=== PATIENT | female | born 1940 | race Caucasian/White ===

== ENCOUNTER 2020-12-30 14:16 | Inpatient (IN) ==
[2020-12-30] MEDS ORDERED: ONDANSETRON 4 MG/2 ML VIAL IV PRN (16:04)
[2020-12-30] MEDS ORDERED: SENNOSIDES 1 TABLET PO PRN (16:07)
[2020-12-30] MEDS ORDERED: CALCIUM CARBONATE 500 MG TAB.CHEW CHEWED PRN (16:07)
[2020-12-30] MEDS ORDERED: ONDANSETRON 4 MG ODT TABLET SL PRN (16:07)
[2020-12-30] MEDS ORDERED: ACETAMINOPHEN 325 MG TABLET PO PRN (16:07)
[2020-12-30] MEDS ORDERED: POTASSIUM CHLORIDE 20 MEQ in DEXTROSE 5% IN WATER 250 ML IV ONE (16:11)
[2020-12-30] MEDS ORDERED: POTASSIUM CHLORIDE 20 MEQ TABLET PO ONE (16:12)
--- NOTE | 2020-12-30 16:14 | Internal Med History&Physical ---
HPI History of Present Illness Patient information: Note initiated : 12/30/20 at 4:12 pm Service Date, if different from initiated Date: [] Patient: Blossom Amaral 80 y/o F admitted on 12/30/20 for UTI; Hypokalemia. Chief Complaint: Lumbar vertebral fracture due to frequent falls, UTI History of present illness: Ms. Amaral is a 80 year old female who transferred from [facility] emergency room. Patient was presented to the ED with frequent falls for 1-2 weeks according to the family. She has generalized weakness and failure to thrive. Patient walks with a walker and her last fall was 3 days ago where she landed on her back. She complains of low and middle back pain. CT scan of lumbar spine revealed subacute VS acute compression fracture L4, chronic compression deformities T11, L1 with diffuse osteopenia. She had urinary incontinence and she was found to have evidence of urinary tract infection and was given IV fluid and 1 g of Rocephin. Urine culture is pending. Her serum potassium was 2.8 with normal BUN/creatinine. Currently she is feeling better after receiving IV fluid. She complains of low and mid back pain. No nausea vomiting chest pain shortness of breath. Review of Systems All systems: reviewed and no additional remarkable complaints except as stated Review of systems: Except as documented all systems reviewed and negative MEDS/ALLERGIES Home Medications and Allergies Home Medications Medication Instructions Recorded Confirmed Type No Known Home Meds 12/30/20 12/30/20 History Allergies Allergy/AdvReac Type Severity Reaction Status Date / Time No Known Drug Allergies Allergy Unverified 12/30/20 15:59 EXAM Constitutional Vitals: Temp Pulse Resp BP Pulse Ox 98.9 F 81 20 162/85 91 12/30/20 15:56 12/30/20 15:56 12/30/20 15:56 12/30/20 15:56 12/30/20 15:56 General appearance: average body habitus (Pleasant elderly female in no distress), cooperative and no acute distress Head Head exam: Present atraumatic, normal inspection and normocephalic Eye Eye exam: Present EOMI, normal appearance and PERRL Neck Neck exam: Present full ROM and normal inspection Respiratory Respiratory exam: Present normal respiratory exam and CTAB Cardiovascular Cardiovascular exam: Present normal rate and rhythm, +S1 and +S2; Absent diastolic murmur and systolic murmur GI/Abdominal GI/Abdominal exam: Present normal bowel sounds, soft and distended (Moderate to severe distention, tympanic, positive bowel sounds. Nontender. No hepatosplenomegaly. No hernia. No mass); Absent hernia, mass, rebound and tenderness Extremities Exam Extremities exam: Present full ROM, normal capillary refill and normal inspection; Absent calf tenderness and joint swelling Back Exam Back exam: Present tenderness (Decreased range of motion due to pain.) Neurological Exam Neurological exam: Present alert, CN II-XII intact, oriented X3 and reflexes normal Psychiatric Psychiatric exam: Present normal affect and normal mood Skin Skin exam: Present dry, normal color and warm DATA Data Completed and Pending Procedures and tests throughout hospitalization: All the studies including chest x-ray, CT scan of thoracic and lumbar spine, CBC, BMP and vital signs from [place] emergency room has been reviewed by myself Impressions Impressions: CT scan of thoracic and lumbar spine from [facility]: Subacute versus acute compression fracture L4, chronic compression fraction/deformity T11 L1, diffuse osteopenia, probable mucous plugging descending bronchus to the left lower lobe. A/P Narrative A/P Narrative: 80 years old pleasant female admitted from [place] emergency room with following problem list: # Fall with L4 Fx. - CT scan of thoracic and lumbar spine from [facility]: Subacute vs acute compression fracture L4, chronic compression fraction/deformity T11 L1, diffuse osteopenia, - Pain control, PT/OT. Consider TLSO brace. Will d/w PT # UTI Abnormal UA at [facility] ER. Pending Ux - UA 27 WBC, +nevin Bacteria, LE - Incontinence of urine. - Cont Rocephin 1g daily and follow Ux from [facility]. # Dehydration. - Gentle IVF and follow BMP. # Mod Abdominal distention. - Pt has no N/V. She had small BM earlier. On Exam Abd non tender - Check KUB. # Probable mucous plugging descending bronchus to the left lower lobe by CT scan - No symptoms. Monitor #Profound hypokalemia serum potassium 2.8. Likely due to poor p.o. intake -Replace and follow BMP #Frequent falls/generalized weakness/failure to thrive -Supportive care, PT/OT. Patient likely needs intermediate home DVT PPX: Lovenox 40mg daily Code Status : Full code Disposition: Observation Plan of care discussed with patient and RN Time Spent With Patient Time: Total time spent is greater than 50% in coordination of care (as documented) at patient's floor/unit and/or counseling patient:
[2020-12-30] MEDS ORDERED: IBUPROFEN 200 MG TABLET PO PRN (16:48)
[2020-12-30] MEDS: 0.9 % SODIUM CHLORIDE 1,000 ML IV SCH (17:17)
[2020-12-30] MEDS: ENOXAPARIN 40 MG/0.4 ML SYRINGE SQ SCH (18:17)
[2020-12-30] MEDS: cefTRIAXone 1 GM VIAL IV SCH (18:18)
[2020-12-30] MEDS ORDERED: hydrALAZINE 20 MG/ML VIAL IV PRN (18:43)
[2020-12-30] MEDS ORDERED: POTASSIUM CHLORIDE 20 MEQ/10 ML VIAL IV ONE (18:43)
[2020-12-30] MEDS: amLODIPine 5 MG TABLET PO SCH (18:52)
[2020-12-30] MEDS: MAGNESIUM HYDROXIDE 30 ML ORAL.SUSP PO PRN (20:13)
[2020-12-30] MEDS: 0.9 % SODIUM CHLORIDE 10 ML SYRINGE IV SCH (20:17)
--- NOTE | 2020-12-30 20:42 | XRay Report ---
CLINICAL INFORMATION: Abdominal distention COMPARISON: None. FINDINGS: Marked dilatation of the colon to the distal descending segment appreciated. The sigmoid: and rectum are gasless. This suggests distal colonic obstruction. There is no free air or soft tissue mass.. Severe degeneration both hips noted. IMPRESSION: High-grade distal colonic obstruction at the descending colon/ sigmoid junction. Suggest abdomen and pelvic CT to confirm. Severe hip degeneration Interpreted and Authenticated by: Chris Bernal 12/30/20
[2020-12-31] MEDS: 0.9 % SODIUM CHLORIDE 1,000 ML IV SCH (02:57)
[2020-12-31] MEDS: 0.9 % SODIUM CHLORIDE 10 ML SYRINGE IV SCH ×3 (05:46→21:42)
[2020-12-31 06:28] LABS: Basophils # (Auto) 0.04 K/mcL (0.00-0.20); Basophils % (Auto) 0.4 % (0.0-2.0); Eosinophils # (Auto) 0.49 K/mcL (0.00-0.70); Eosinophils % (Auto) 5.4 % (0.0-7.0); Hematocrit 46.6 % (36.0-48.0); Lymphocytes # (Auto) 2.45 K/mcL (1.50-4.80); Lymphocytes % (Auto) 26.8 % (15.0-49.0); Mean Cell Volume 94.3 fL (80.0-100.0); Mean Corpuscular HGB Conc 34.3 g/dL (31.0-36.0); Mean Platelet Volume 10.1 fL (7.4-10.4); Monocytes # (Auto) 0.49 K/mcL (0.10-0.90); Monocytes % (Auto) 5.4 % (1.0-12.0); Platelet Count 331 K/mcL (140-440); RBC 4.94 M/mcL (4.00-5.20); Red Cell Distribution Width 13.1 % (11.5-14.5); WBC 9.1 K/mcL (4.5-11.0)
[2020-12-31 07:04] LABS: Blood Urea Nitrogen 6 mg/dL (8-23); Calcium 8.4 mg/dL (8.6-10.4); Carbon Dioxide 23 mmol/L (22-30); Chloride 102 mmol/L (96-108); Glomerular Filtration Rate 90; Glucose 108 mg/dL (70-105)
[2020-12-31] MEDS: amLODIPine 5 MG TABLET PO SCH (08:36)
[2020-12-31] MEDS: ACETAMINOPHEN W/CODEINE #3 1 TABLET PO PRN ×3 (08:36→22:09)
[2020-12-31] MEDS: cefTRIAXone 1 GM VIAL IV SCH (08:40)
[2020-12-31] MEDS ORDERED: cefTRIAXone 1 GM in DEXTROSE 5% IN WATER 50 ML IV SCH (09:00)
[2020-12-31] MEDS: ENOXAPARIN 40 MG/0.4 ML SYRINGE SQ SCH (09:25)
--- NOTE | 2020-12-31 10:11 | Internal Med Progress Note ---
SUBJECTIVE Subjective Patient information: Note initiated : 12/31/20 at 10:07 am Service Date, if different from initiated Date: Patient: Blossom Amaral 80 y/o F admitted on 12/30/20 for UTI; Hypokalemia. Chief Complaint: Fall and L4 Fracture Principal diagnosis: Fall with L4 fracture Interval history: Patient is feeling much better today. He still has low back pain. No nausea vomiting chest pain shortness of breath. Constitutional Vitals: Vital Signs Temp Pulse Resp BP Pulse Ox 98.3 F 71 18 147/79 93 12/31/20 08:00 12/31/20 08:00 12/31/20 08:00 12/31/20 08:00 12/31/20 08:00 Period Temp Pulse Resp BP Sys/Antunez Pulse Ox Last 24 Hr 97.5 F-98.9 F 61-84 16-20 136-162/72-85 91-94 Intake and Output 12/30/20 12/31/20 12/31/20 21:59 05:59 13:59 Intake Total 260 1567 Output Total 900 Balance 260 667 Weight 67.642 kg Intake & Output: Intake & Output 12/30/20 12/31/20 12/31/20 21:59 05:59 13:59 Intake Total 260 1567 Output Total 900 Balance 260 667 Weight 67.642 kg Intake: IV 260 967 Sodium Chloride 0.9% 1,000 ml @ 967 100 mls/hr IV .Q10H [facility] Rx#: [id number] Potassium Chloride 20 Meq In 260 Dextrose 5% in Water 250 ml @ 130 mls/hr IV ONCE ONE Rx#: [id number] Oral 0 600 Output: Urine Catheter Amount 250 Stool 650 Other: Meal Breakfast Percent of Meal Consumed 75% Stool Color Brown Stool Consistency Liquid Additional findings Additional findings: General: Awake alert oriented x3. No apparent distress HEENT: PERRLA, moist mucous membrane. Anicteric sclera Lungs: Clear to auscultation bilaterally. No crackles rhonchi or rales. Cardiovascular: Regular rate and rhythm. S1 + S2, 2/6 diastolic murmur. No gallop rub. No peripheral edema. No JVD GI: Abdomen distended, tympanic, soft, nontender, positive bowel sounds. No hepatosplenomegaly. No rebound tenderness. No CVA tenderness [employer]: Awake alert oriented x3. Cranial nerves II through XII 12 grossly intact. Psychiatric: Normal mood and affect OBJ DATA Labs CBC & Chem 7: 12/31/20 05:30 12/31/20 05:30 Labs: Abnormal Lab Results 12/31/20 12/31/20 05:30 05:30 Hgb 16.0 H BUN 6 L Creatinine 0.5 L Glucose 108 H Calcium 8.4 L Meds: Medications Acetaminophen (Acetaminophen 325 Mg Tablet) 650 mg PO Q6HP PRN; Protocol PRN Reason: Per Pain Protocol/Fever > 101 Acetaminophen/Codeine Phosphate (Acetaminophen W/Codeine #3 1 Tablet) 1 tab PO Q4HP PRN; Protocol PRN Reason: Per Pain Protocol Last Admin: 12/31/20 08:36 Dose: 1 tab Documented by: Amlodipine Besylate (Amlodipine 5 Mg Tablet) 5 mg PO DAILY [facility] Last Admin: 12/31/20 08:36 Dose: 5 mg Documented by: Calcium Carbonate/Glycine (Calcium Carbonate 500 Mg Tab.Chew) 1,000 mg CHEWED Q4HP PRN PRN Reason: Dyspepsia Ceftriaxone Sodium (Ceftriaxone 1 Gm Vial) 1 gm IV DAILY [facility] Last Admin: 12/31/20 08:40 Dose: 1 gm Documented by: Enoxaparin Sodium (Enoxaparin 40 Mg/0.4 Ml Syringe) 40 mg SQ DAILY [facility] Last Admin: 12/31/20 09:25 Dose: 40 mg Documented by: Hydralazine HCl (Hydralazine 20 Mg/Ml Vial) 10 mg IV Q4-6HP PRN PRN Reason: Hypertension Ibuprofen (Ibuprofen 200 Mg Tablet) 400 mg PO QIDP PRN; Protocol PRN Reason: Per Pain Protocol/Fever > 101 Last Admin: 12/30/20 20:13 Dose: 400 mg Documented by: Magnesium Hydroxide (Magnesium Hydroxide 30 Ml Oral.Susp) 30 ml PO DAILYP PRN PRN Reason: Constipation Last Admin: 12/30/20 20:13 Dose: 30 ml Documented by: Ondansetron HCl (Ondansetron 4 Mg Odt Tablet) 4 mg SL Q6HP PRN PRN Reason: Nausea And Vomiting Ondansetron HCl (Ondansetron 4 Mg/2 Ml Vial) 4 mg IV Q6HP PRN PRN Reason: Nausea And Vomiting Senna (Sennosides 1 Tablet) 2 tab PO HS PRN PRN Reason: Constipation Sodium Chloride (0.9 % Sodium Chloride 10 Ml Syringe) 10 ml IV Q8 [facility] Last Admin: 12/31/20 05:46 Dose: Not Given Documented by: A/P Narrative A/P Narrative: 80 years old pleasant female admitted from [facility] emergency room with following problem list: # Fall with L4 Fx. - CT scan of thoracic and lumbar spine from [facility]: Subacute vs acute compression fracture L4, chronic compression fraction/deformity T11 L1, diffuse osteopenia, - Pain control, PT/OT. Consider TLSO brace. Will d/w PT # UTI Abnormal UA at [facility] ER. Pending Ux - UA 27 WBC, +nevin Bacteria, LE - Incontinence of urine. - Cont Rocephin 1g daily and follow Ux from [facility]. # Mod Abdominal distention. - Pt had Large BM last night. No N/V, Pain. No clinical S&S of Obstruction. - KUB High-grade distal colonic obstruction at the descending colon/ sigmoid junction. Suggest abdomen and pelvic CT to confirm. - Check CT A/P with Oral IV/Contrast # Dehydration. - Gentle IVF and follow BMP. # Probable mucous plugging descending bronchus to the left lower lobe by CT scan - No symptoms. Monitor #Profound hypokalemia serum potassium 2.8. Likely due to poor p.o. intake -Replace and follow BMP #Frequent falls/generalized weakness/failure to thrive -Supportive care, PT/OT. Patient likely needs snf home DVT PPX: Lovenox 40mg daily Code Status : Full code Disposition: Inpatient Plan of care discussed with patient and RN Time Spent With Patient Time: Total time spent is greater than 50% in coordination of care (as docume nted) at patient's floor/unit and/or counseling patient:
[2020-12-31] MEDS ORDERED: POTASSIUM CHLORIDE 20 MEQ TABLET PO ONE (10:18)
--- NOTE | 2020-12-31 13:06 | Internal Med Progress Note ---
SUBJECTIVE Subjective Patient information: Note initiated : 12/31/20 at 1:00 pm Service Date, if different from initiated Date: [] Patient: Blossom Amaral 80 y/o F admitted on 12/30/20 for UTI; Hypokalemia. Chief Complaint: [] Principal diagnosis: Fall with L4 fracture Interval history: History of present illness: Ms. Amaral is a 80 year old female who transferred from [facility] emergency room. Patient was presented to the ED with frequent falls for 1-2 weeks according to the family. She has generalized weakness and failure to thrive. Patient walks with a walker and her last fall was 3 days ago where she landed on her back. She complains of low and middle back pain. CT scan of lumbar spine revealed subacute VS acute compression fracture L4, chronic compression deformities T11, L1 with diffuse osteopenia. She had urinary incontinence and she was found to have evidence of urinary tract infection and was given IV fluid and 1 g of Rocephin. Urine culture is pending. Her serum potassium was 2.8 with normal BUN/creatinine. Currently she is feeling better after receiving IV fluid. She complains of low and mid back pain. No nausea vomiting chest pain shortness of breath. 7/5 Patient is feeling much better today. He still has low back pain. No nausea vomiting chest pain shortness of breath. 7/6 Constitutional Vitals: Vital Signs Temp Pulse Resp BP Pulse Ox 98.3 F 71 18 147/79 93 12/31/20 08:00 12/31/20 08:00 12/31/20 08:00 12/31/20 08:00 12/31/20 08:00 Period Temp Pulse Resp BP Sys/Antunez Pulse Ox Last 24 Hr 97.5 F-98.9 F 61-84 16-20 136-162/72-85 91-94 Intake and Output 12/30/20 12/31/20 12/31/20 21:59 05:59 13:59 Intake Total 260 1567 1000 Output Total 900 Balance 547 416 2061 Weight 67.642 kg 67.642 kg Patient Weight 01/01/21 05:59 Weight 67.642 kg Intake & Output: Intake & Output 12/30/20 12/31/20 12/31/20 21:59 05:59 13:59 Intake Total 260 1567 1000 Output Total 900 Balance 090 311 3293 Weight 67.642 kg 67.642 kg Intake: IV 350 291 1301 Sodium Chloride 0.9% 1,000 ml @ 967 1000 100 mls/hr IV .Q10H [facility] Rx#: [id number] Potassium Chloride 20 Meq In 260 Dextrose 5% in Water 250 ml @ 130 mls/hr IV ONCE ONE Rx#: [id number] Oral 0 600 Output: Urine Catheter Amount 250 Stool 650 Other: Meal Breakfast Percent of Meal Consumed 75% Stool Color Brown Stool Consistency Liquid Exam: General: Alert, Awake, No acute Distress Eyes/N/T: EOMI, Head/Neck: neck supple, CV: RRR, No murmurs, Pulm: Clear b/l, no wheezing/rhonchi/rales Abd: soft, nontender, +BS x4 Ext: no clubbing/cyanosis/edema Neuro: Alert, no focal deficits, moves all extremities, Skin: warm/dry OBJ DATA Labs CBC & Chem 7: 12/31/20 05:30 12/31/20 05:30 Labs: Abnormal Lab Results 12/31/20 12/31/20 05:30 05:30 Hgb 16.0 H BUN 6 L Creatinine 0.5 L Glucose 108 H Calcium 8.4 L Meds: Medications Acetaminophen (Acetaminophen 325 Mg Tablet) 650 mg PO Q6HP PRN; Protocol PRN Reason: Per Pain Protocol/Fever > 101 Acetaminophen/Codeine Phosphate (Acetaminophen W/Codeine #3 1 Tablet) 1 tab PO Q4HP PRN; Protocol PRN Reason: Per Pain Protocol Last Admin: 12/31/20 08:36 Dose: 1 tab Documented by: Amlodipine Besylate (Amlodipine 5 Mg Tablet) 5 mg PO DAILY [facility] Last Admin: 12/31/20 08:36 Dose: 5 mg Documented by: Calcium Carbonate/Glycine (Calcium Carbonate 500 Mg Tab.Chew) 1,000 mg CHEWED Q4HP PRN PRN Reason: Dyspepsia Ceftriaxone Sodium (Ceftriaxone 1 Gm Vial) 1 gm IV DAILY [facility] Last Admin: 12/31/20 08:40 Dose: 1 gm Documented by: Enoxaparin Sodium (Enoxaparin 40 Mg/0.4 Ml Syringe) 40 mg SQ DAILY [facility] Last Admin: 12/31/20 09:25 Dose: 40 mg Documented by: Hydralazine HCl (Hydralazine 20 Mg/Ml Vial) 10 mg IV Q4-6HP PRN PRN Reason: Hypertension Ibuprofen (Ibuprofen 200 Mg Tablet) 400 mg PO QIDP PRN; Protocol PRN Reason: Per Pain Protocol/Fever > 101 Last Admin: 12/30/20 20:13 Dose: 400 mg Documented by: Magnesium Hydroxide (Magnesium Hydroxide 30 Ml Oral.Susp) 30 ml PO DAILYP PRN PRN Reason: Constipation Last Admin: 12/30/20 20:13 Dose: 30 ml Documented by: Ondansetron HCl (Ondansetron 4 Mg Odt Tablet) 4 mg SL Q6HP PRN PRN Reason: Nausea And Vomiting Ondansetron HCl (Ondansetron 4 Mg/2 Ml Vial) 4 mg IV Q6HP PRN PRN Reason: Nausea And Vomiting Potassium Chloride (Potassium Chloride 20 Meq Tablet) 40 meq PO ONCE ONE Stop: 01/01/21 08:01 Senna (Sennosides 1 Tablet) 2 tab PO HS PRN PRN Reason: Constipation Sodium Chloride (0.9 % Sodium Chloride 10 Ml Syringe) 10 ml IV Q8 [facility] Last Admin: 12/31/20 05:46 Dose: Not Given Documented by: A/P Narrative A/P Narrative: A: #Fall with L4 Fx: - Pain control, PT/OT. Consider TLSO brace. Will d/w PT # UTI: - Cont Rocephin 1g daily and follow Ux from [facility] #pSOB vs Ileus - Check CT A/P with Oral IV/Contrast #Dehydration: improved # Probable mucous plugging descending bronchus to the left lower lobe by CT scan -IS/Acapella #Profound hypokalemia serum potassium 2.8: Likely due to poor p.o. intake -Replace and follow BMP #Frequent falls/generalized weakness/failure to thrive: -Supportive care, PT/OT. Patient likely needs long term home DVT PPX: Lovenox 40mg daily Code Status : Full code Time Spent With Patient Time: Total time spent is greater than 50% in coordination of care (as documented) at patient's floor/unit and/or counseling patient:
[2020-12-31] MEDS ORDERED: IOPAMIDOL 100 ML BOTTLE IV ONE (15:04)
--- NOTE | 2020-12-31 15:18 | Cat Scan Report ---
History: Abdominal distention and possible distal large bowel obstruction seen on plain x-ray performed on 12/30/20 TECHNIQUE: The patient was imaged following oral and intravenous contrast scanning from the diaphragm to the symphysis pubis. Sagittal and coronal reformats were created. Additional five minute delayed images of the upper abdomen were acquired. The radiation exposure was limited using dose reduction technology. FINDINGS: There are several bands of consolidated lung tissue contiguous with the pleura in both lung bases. This could be scar or atelectasis. The heart is mildly enlarged. No pleural effusion is present. The liver and spleen are normal in size and homogeneous. Layering posteriorly within the fundus of gallbladder there is a cluster of small faintly calcified stones which range from 2 to 3 mm in size. There is no evidence of acute cholecystitis. The intra and extrahepatic bile ducts are normal in caliber. Pancreas is normal in size and homogeneous. The adrenals are normal and symmetric. A 2.5 cm simple cyst is present anteriorly and laterally in the upper half of left kidney. A 1.4 cm cyst is present in the middle third of the right kidney. Large extrarenal pelvis are present bilaterally but there is no caliectasis. The ureters are decompressed. There is no kidney stone or evidence of solid renal mass. The aorta is normal in caliber. There are scattered plaques along the zapien of the aorta celiac, superior mesenteric renal and iliac arteries. There is no evidence of vascular occlusion within the abdomen or pelvis. Inferior vena cava is normal. Normal contrast is passed through normal stomach and small intestine to the distal ileum. Contrast has not yet entered the large intestine. There is no evidence of appendicitis. Moderate amount of gas and normal amount stool are present in the ascending transverse and proximal descending colon. There are multiple noninflamed diverticula in the distal descending and proximal sigmoid colon. There is circumferential thickening of the wall of the distal sigmoid colon and rectum with collapse of the lumen. The wall measures up to 1 cm. There is no inflammation of the adjacent pericolonic fat. Trace amount of ascites is present anterior to the sacrum. There is no evidence of an abscess or free intraperitoneal air. Urinary bladder appears normal. Uterus is retroverted. There is atrophy of the uterus and ovaries. Bone windows reveal moderately severe biconcave wedge compression fractures at T11, L1 and L4. There is sclerosis in the body of L4. The pedicles and posterior elements appear normal. 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 IMPRESSION: Colitis involving the distal sigmoid and rectum causing low-grade large bowel obstruction Cholelithiasis Diverticulosis but without diverticulitis Multiple compression fractures in the lower thoracic and lumbar spine. This may be related to the underlying osteoporosis Interpreted and Authenticated by: Golden Cartwright 12/31/20
[2021-01-01] MEDS: 0.9 % SODIUM CHLORIDE 10 ML SYRINGE IV SCH ×3 (04:36→22:30)
[2021-01-01] MEDS: MAGNESIUM HYDROXIDE 30 ML ORAL.SUSP PO PRN (05:16)
[2021-01-01 06:25] LABS: Basophils # (Auto) 0.03 K/mcL (0.00-0.20); Basophils % (Auto) 0.4 % (0.0-2.0); Eosinophils # (Auto) 0.27 K/mcL (0.00-0.70); Hematocrit 43.4 % (36.0-48.0); Hemoglobin 14.6 g/dL (12.0-15.0); Lymphocytes % (Auto) 17.9 % (15.0-49.0); Mean Cell Volume 95.2 fL (80.0-100.0); Mean Corpuscular HGB Conc 33.6 g/dL (31.0-36.0); Mean Platelet Volume 9.9 fL (7.4-10.4); Monocytes # (Auto) 0.43 K/mcL (0.10-0.90); Monocytes % (Auto) 6.4 % (1.0-12.0); Neutrophils % (Auto) 71.3 % (38.0-78.0); Platelet Count 300 K/mcL (140-440); RBC 4.56 M/mcL (4.00-5.20); WBC 6.7 K/mcL (4.5-11.0)
[2021-01-01 06:57] LABS: ALT/SGPT 10 U/L (<40); AST/SGOT 14 U/L (<32); Albumin 3.1 gm/dL (3.2-5.2); Alkaline Phosphatase 151 U/L (39-117); Bilirubin,Direct 0.3 mg/dL (<0.3); Bilirubin,Total 1.1 mg/dL (0.1-1.0); Blood Urea Nitrogen 5 mg/dL (8-23); Calcium 8.5 mg/dL (8.6-10.4); Carbon Dioxide 24 mmol/L (22-30); Chloride 103 mmol/L (96-108); Globulin 3.1 gm/dL (2.2-3.7); Glomerular Filtration Rate 97; Glucose 87 mg/dL (70-105); Lactate Dehydrogenase 216 U/L (135-225); Phosphorous 2.3 mg/dL (2.5-4.5); Triglycerides 84 mg/dL (<150); Uric Acid 2.8 mg/dL (2.5-8.0)
--- NOTE | 2021-01-01 07:07 | Internal Med Progress Note ---
SUBJECTIVE Subjective Patient information: Note initiated : 01/01/21 at 7:03 am Service Date, if different from initiated Date: [] Patient: Blossom Amaral 80 y/o F admitted on 12/30/20 for UTI; Hypokalemia. Chief Complaint: [] Principal diagnosis: Fall with L4 fracture Interval history: History of present illness: Ms. Amaral is a 80 year old female who transferred from [facility] emergency room. Patient was presented to the ED with frequent falls for 1-2 weeks according to the family. She has generalized weakness and failure to thrive. Patient walks with a walker and her last fall was 3 days ago where she landed on her back. She complains of low and middle back pain. CT scan of lumbar spine revealed subacute VS acute compression fracture L4, chronic compression deformities T11, L1 with diffuse osteopenia. She had urinary incontinence and she was found to have evidence of urinary tract infection and was given IV fluid and 1 g of Rocephin. Urine culture is pending. Her serum potassium was 2.8 with normal BUN/creatinine. Currently she is feeling better after receiving IV fluid. She complains of low and mid back pain. No nausea vomiting chest pain shortness of breath. 7/5 Patient is feeling much better today. He still has low back pain. No nausea vomiting chest pain shortness of breath. 7/6 Patient states poor sleep because of interruptions, otherwise no new complaints. Last recorded bowel movement was historical guide on the fifth. Patient states she just had a small one this morning we will need to clarify with nursing. LSO brace for back Review of Systems: denies headache/fever/chills/nausea/vomiting/chest or abdominal pain/cough/dyspnea/diarrhea. Otherwise see above. Constitutional Vitals: Vital Signs Temp Pulse Resp BP Pulse Ox 98.3 F 70 18 152/81 92 01/01/21 03:43 01/01/21 03:43 01/01/21 03:43 01/01/21 03:43 01/01/21 03:43 Period Temp Pulse Resp BP Sys/Antunez Pulse Ox Last 24 Hr 98.1 F-98.7 F 65-72 18-20 128-152/72-81 91-95 Intake and Output 12/31/20 01/01/21 01/01/21 21:59 05:59 13:59 Intake Total 600 600 Output Total 1141 301 Balance -541 299 Weight 68.538 kg Intake & Output: Intake & Output 12/31/20 01/01/21 01/01/21 21:59 05:59 13:59 Intake Total 600 600 Output Total 1141 301 Balance -541 299 Weight 68.538 kg Intake: Oral 600 600 Output: Void Amount 1140 300 # of times incontinent of urine 1 1 Other: Meal ice cream Urine Appearance Clear Clear Urine Color Bright Yellow Bright Yellow Urine Odor Normal # Voids 1 Exam: General: Alert, Awake, No acute Distress Eyes/N/T: EOMI, Head/Neck: neck supple, CV: RRR, No murmurs, Pulm: Clear b/l, no wheezing/rhonchi/rales Abd: soft, nontender, +BS x4 Ext: no clubbing/cyanosis/edema Neuro: Alert, no focal deficits, moves all extremities, Skin: warm/dry OBJ DATA Labs CBC & Chem 7: 01/01/21 05:32 01/01/21 05:32 Labs: Abnormal Lab Results 01/01/21 01/01/21 12/31/20 05:32 05:32 05:30 Hgb Lymph # (Auto) 1.20 L BUN 5 L 6 L Creatinine 0.4 L 0.5 L Glucose 108 H Calcium 8.5 L 8.4 L Phosphorus 2.3 L Total Bilirubin 1.1 H Direct Bilirubin 0.3 H Alkaline Phosphatase 151 H Albumin 3.1 L 12/31/20 05:30 Hgb 16.0 H Lymph # (Auto) BUN Creatinine Glucose Calcium Phosphorus Total Bilirubin Direct Bilirubin Alkaline Phosphatase Albumin Meds: Medications Acetaminophen (Acetaminophen 325 Mg Tablet) 650 mg PO Q6HP PRN; Protocol PRN Reason: Per Pain Protocol/Fever > 101 Acetaminophen/Codeine Phosphate (Acetaminophen W/Codeine #3 1 Tablet) 1 tab PO Q4HP PRN; Protocol PRN Reason: Per Pain Protocol Last Admin: 12/31/20 22:09 Dose: 1 tab Documented by: Amlodipine Besylate (Amlodipine 5 Mg Tablet) 5 mg PO DAILY [facility] Last Admin: 12/31/20 08:36 Dose: 5 mg Documented by: Calcium Carbonate/Glycine (Calcium Carbonate 500 Mg Tab.Chew) 1,000 mg CHEWED Q4HP PRN PRN Reason: Dyspepsia Ceftriaxone Sodium (Ceftriaxone 1 Gm Vial) 1 gm IV DAILY [facility] Last Admin: 12/31/20 08:40 Dose: 1 gm Documented by: Enoxaparin Sodium (Enoxaparin 40 Mg/0.4 Ml Syringe) 40 mg SQ DAILY [facility] Last Admin: 12/31/20 09:25 Dose: 40 mg Documented by: Hydralazine HCl (Hydralazine 20 Mg/Ml Vial) 10 mg IV Q4-6HP PRN PRN Reason: Hypertension Ibuprofen (Ibuprofen 200 Mg Tablet) 400 mg PO QIDP PRN; Protocol PRN Reason: Per Pain Protocol/Fever > 101 Last Admin: 12/30/20 20:13 Dose: 400 mg Documented by: Magnesium Hydroxide (Magnesium Hydroxide 30 Ml Oral.Susp) 30 ml PO DAILYP PRN PRN Reason: Constipation Last Admin: 01/01/21 05:16 Dose: 30 ml Documented by: Ondansetron HCl (Ondansetron 4 Mg Odt Tablet) 4 mg SL Q6HP PRN PRN Reason: Nausea And Vomiting Ondansetron HCl (Ondansetron 4 Mg/2 Ml Vial) 4 mg IV Q6HP PRN PRN Reason: Nausea And Vomiting Potassium Chloride (Potassium Chloride 20 Meq Tablet) 40 meq PO ONCE ONE Stop: 01/01/21 08:01 Senna (Sennosides 1 Tablet) 2 tab PO HS PRN PRN Reason: Constipation Sodium Chloride (0.9 % Sodium Chloride 10 Ml Syringe) 10 ml IV Q8 [facility] Last Admin: 01/01/21 04:36 Dose: 10 ml Documented by: A/P Narrative A/P Narrative: A: #Fall with acute L4 Fx, chronic T11-L1: - Pain control, PT/OT. LSO brace. # UTI (GNB): - Cont Rocephin 1g daily and follow Ux from [facility] #pSBO from colitis: last BM on 5th -rocephin/flagyl -full liquid #Dehydration: improved # Probable mucous plugging descending bronchus to the left lower lobe by CT scan -IS/Acapella #Profound hypokalemia serum potassium 2.8: Likely due to poor p.o. intake -improved #Frequent falls/generalized weakness/failure to thrive: -Supportive care, PT/OT. Patient likely needs [facility] home DVT PPX: Lovenox 40mg daily Code Status : Full code Time Spent With Patient Time: Total time spent is greater than 50% in coordination of care (as documented) at patient's floor/unit and/or counseling patient:
[2021-01-01] MEDS ORDERED: POTASSIUM CHLORIDE 20 MEQ TABLET PO ONE (08:00)
[2021-01-01] MEDS: amLODIPine 5 MG TABLET PO SCH (09:03)
[2021-01-01] MEDS: metroNIDAZOLE 500 MG/100 ML BAG IV SCH ×3 (09:04→22:30)
[2021-01-01] MEDS: cefTRIAXone 1 GM VIAL IV SCH (09:04)
[2021-01-01] MEDS: ENOXAPARIN 40 MG/0.4 ML SYRINGE SQ SCH (09:04)
[2021-01-01] MEDS: POLYETHYLENE GLYCOL 3350 17 GM PACKET PO SCH (09:21)
--- NOTE | 2021-01-01 10:57 | Discharge Summary ---
Discharge Provider Provider Patient information: Note initiated : 01/01/21 at 10:55 am Service Date, if different from initiated Date: [] Patient: Blossom Amaral 80 y/o F admitted on 12/30/20 for UTI; Hypokalemia. Chief Complaint: [] Date of admission: 12/30/20 15:00 Discharge date: 01/02/21 Discharge Meds Discharge Medications Home Medications amlodipine 5 mg PO DAILY #30 tab 01/01/21 [Rx Last Taken Unknown] acetaminophen 500 mg PO Q6H PRN #30 cap 01/02/21 [Rx Last Taken Unknown] ciprofloxacin HCl [Cipro] 500 mg PO BID #4 tab 01/02/21 [Rx Last Taken Unknown] docusate calcium [Stool Softener (docusate benigno)] 240 mg PO BID #60 cap 01/02/21 [Rx Last Taken Unknown] metronidazole [Flagyl] 500 mg PO TID #6 tab 01/02/21 [Rx Last Taken Unknown] COURSE Hospital Course Hospital course: Principal diagnosis: Fall with L4 fracture Interval history: History of present illness: Ms. Amaral is a 80 year old female who transferred from [facility] emergency room. Patient was presented to the ED with frequent falls for 1-2 weeks according to the family. She has generalized weakness and failure to thrive. Patient walks with a walker and her last fall was 3 days ago where she landed on her back. She complains of low and middle back pain. CT scan of lumbar spine revealed subacute VS acute compression fracture L4, chronic compression deformities T11, L1 with diffuse osteopenia. She had urinary incontinence and she was found to have evidence of urinary tract infection and was given IV fluid and 1 g of Rocephin. Urine culture is pending. Her serum potassium was 2.8 with normal BUN/creatinine. Currently she is feeling better after receiving IV fluid. She complains of low and mid back pain. No nausea vomiting chest pain shortness of breath. 7/5 Patient is feeling much better today. He still has low back pain. No nausea vomiting chest pain shortness of breath. 7/6 Patient states poor sleep because of interruptions, otherwise no new complaints. 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 Patient states she just had a small one this morning we will need to clarify with nursing. LSO brace for back A: #Fall with acute L4 Fx, chronic T11-L1: - Pain control, PT/OT. LSO brace. # UTI (GNB): - Cont Rocephin 1g daily and follow Ux from [facility] #colitis with partial large bowel obstruction: last BM on ?6th -rocephin/flagyl -full liquid #Dehydration: improved # Probable mucous plugging descending bronchus to the left lower lobe by CT scan -IS/Acapella #Profound hypokalemia serum potassium 2.8: Likely due to poor p.o. intake -improved #Frequent falls/generalized weakness/failure to thrive: -Supportive care, PT/OT. Patient likely needs senior living home #HTN: norvasc started Discharge diagnosis: L4 compression fracture gram-negative bacillus UTI partial SBO from colitis Secondary discharge diagnosis: Dehydration mucous plugging hypokalemia frequent falls generalized weakness failure to thrive Time Spent with Patient Time attestation: Total time spent providing and/or coordinating discharge services: Time spent: Greater than 30 minutes EXAM Constitutional Vitals: Temp Pulse Resp BP Pulse Ox 98.2 F 63 14 118/67 96 01/01/21 08:00 01/01/21 08:00 01/01/21 08:00 01/01/21 08:00 01/01/21 08:00 Discharge Data Data Completed and Pending Labs on day of discharge: Labs from last 24 hours 01/01/21 01/01/21 05:32 05:32 WBC 6.7 RBC 4.56 Hgb 14.6 Hct 43.4 MCV 95.2 MCH 32.0 MCHC 33.6 RDW 13.0 Plt Count 300 MPV 9.9 Neut % (Auto) 71.3 Lymph % (Auto) 17.9 Davie % (Auto) 6.4 Eos % (Auto) 4.0 Baso % (Auto) 0.4 Lymph # (Auto) 1.20 L Davie # (Auto) 0.43 Eos # (Auto) 0.27 Baso # (Auto) 0.03 Absolute Neutrophils 4.76 Sodium 137 Potassium 3.3 Chloride 103 Carbon Dioxide 24 Anion Gap 10.0 BUN 5 L Creatinine 0.4 L GFR Calculation 97 Glucose 87 Uric Acid 2.8 Calcium 8.5 L Phosphorus 2.3 L Magnesium 2.1 Total Bilirubin 1.1 H Direct Bilirubin 0.3 H GGT 16 AST 14 ALT 10 Alkaline Phosphatase 151 H Lactate Dehydrogenase 216 Total Protein 6.2 Albumin 3.1 L Globulin 3.1 Albumin/Globulin Ratio 1.0 Triglycerides 84 Discharge Plan Patient/Caregiver Discharge Instructions Activity: increase activity as tolerated Diet: Regular Diet Activity Restrictions/Additional Instructions: Monitor blood pressure twice daily and bring log to PCP. Norvasc 5 mg daily started. LSO brace while ambulating Prescriptions: New amlodipine 5 mg Tablet 5 mg PO DAILY Qty: 30 RF: 0 ciprofloxacin HCl [Cipro] 500 mg tablet 500 mg PO BID Qty: 4 RF: 0 metronidazole [Flagyl] 500 mg tablet 500 mg PO TID Qty: 6 RF: 0 docusate calcium [Stool Softener (docusate benigno)] 240 mg capsule 240 mg PO BID Qty: 60 RF: 0 acetaminophen 500 mg capsule 500 mg PO Q6H PRN (Reason: pain) Qty: 30 RF: 0 Follow Up Plan Patient Disposition: Xfer SNF Prognosis: Fair Rehab Potential: Fair I certify that the patient requires SNF services: Yes Overall status at discharge: patient is progressing back to baseline Discharge Orders: Discharge Order (Routine); Ordered 01/02/21 Ordered By: Sincere Scott
[2021-01-01] MEDS: ACETAMINOPHEN W/CODEINE #3 1 TABLET PO PRN (22:35)
[2021-01-02] MEDS: 0.9 % SODIUM CHLORIDE 10 ML SYRINGE IV SCH (06:00)
[2021-01-02] MEDS: metroNIDAZOLE 500 MG/100 ML BAG IV SCH (06:05)
[2021-01-02] MEDS: MAGNESIUM HYDROXIDE 30 ML ORAL.SUSP PO PRN (06:08)
[2021-01-02] MEDS: amLODIPine 5 MG TABLET PO SCH (09:18)
[2021-01-02] MEDS: POLYETHYLENE GLYCOL 3350 17 GM PACKET PO SCH (09:18)
[2021-01-02] MEDS: ENOXAPARIN 40 MG/0.4 ML SYRINGE SQ SCH (09:18)
[2021-01-02] MEDS: cefTRIAXone 1 GM VIAL IV SCH (09:20)
[2021-01-02] MEDS ORDERED: MINERAL OIL 1 DOSE ENEMA PR ONE (10:19)
--- NOTE | 2021-01-02 11:00 | Internal Med Progress Note ---
SUBJECTIVE Subjective Patient information: Note initiated : 01/02/21 at 10:56 am Service Date, if different from initiated Date: [] Patient: Blossom Amaral 80 y/o F admitted on 12/30/20 for UTI; Hypokalemia. Chief Complaint: [] Principal diagnosis: Fall with L4 fracture Interval history: History of present illness: Ms. Amaral is a 80 year old female who transferred from [facility] emergency room. Patient was presented to the ED with frequent falls for 1-2 weeks according to the family. She has generalized weakness and failure to thrive. Patient walks with a walker and her last fall was 3 days ago where she landed on her back. She complains of low and middle back pain. CT scan of lumbar spine revealed subacute VS acute compression fracture L4, chronic compression deformities T11, L1 with diffuse osteopenia. She had urinary incontinence and she was found to have evidence of urinary tract infection and was given IV fluid and 1 g of Rocephin. Urine culture is pending. Her serum potassium was 2.8 with normal BUN/creatinine. Currently she is feeling better after receiving IV fluid. She complains of low and mid back pain. No nausea vomiting chest pain shortness of breath. 7/5 Patient is feeling much better today. He still has low back pain. No nausea vomiting chest pain shortness of breath. 7/6 Patient states poor sleep because of interruptions, otherwise no new complaints. 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 Patient states she just had a small one this morning we will need to clarify with nursing. LSO brace for back Review of Systems: denies headache/fever/chills/nausea/vomiting/chest or abdominal pain/cough/dyspnea/diarrhea. Otherwise see above. Constitutional Vitals: Vital Signs Temp Pulse Resp BP Pulse Ox 97.6 F 75 18 153/91 93 01/02/21 07:35 01/02/21 07:35 01/02/21 07:35 01/02/21 07:35 01/02/21 07:35 Period Temp Pulse Resp BP Sys/Antunez Pulse Ox Last 24 Hr 97.6 F-98.6 F 67-80 14-20 136-153/74-91 91-98 Intake and Output 01/01/21 01/02/21 01/02/21 21:59 05:59 13:59 Intake Total 100 200 100 Output Total 200 201 Balance -100 -1 100 Weight 67.857 kg Intake & Output: Intake & Output 01/01/21 01/02/21 01/02/21 21:59 05:59 13:59 Intake Total 100 200 100 Output Total 200 201 Balance -100 -1 100 Weight 67.857 kg Intake: IV 100 100 100 Oral 100 Output: Void Amount 200 200 # of times incontinent of urine 1 Other: Percent of Meal Consumed 100% Urine Appearance Clear Urine Color Dark Yellow Light Glo Exam: General: Alert, Awake, No acute Distress Eyes/N/T: EOMI, Head/Neck: neck supple, CV: RRR, No murmurs, Pulm: Clear b/l, no wheezing/rhonchi/rales Abd: soft, nontender, +BS x4 Ext: no clubbing/cyanosis/edema Neuro: Alert, no focal deficits, moves all extremities, Skin: warm/dry OBJ DATA Labs CBC & Chem 7: 01/01/21 05:32 01/01/21 05:32 Labs: Abnormal Lab Results 01/01/21 01/01/21 12/31/20 05:32 05:32 05:30 Hgb Lymph # (Auto) 1.20 L BUN 5 L 6 L Creatinine 0.4 L 0.5 L Glucose 108 H Calcium 8.5 L 8.4 L Phosphorus 2.3 L Total Bilirubin 1.1 H Direct Bilirubin 0.3 H Alkaline Phosphatase 151 H Albumin 3.1 L 12/31/20 05:30 Hgb 16.0 H Lymph # (Auto) BUN Creatinine Glucose Calcium Phosphorus Total Bilirubin Direct Bilirubin Alkaline Phosphatase Albumin Meds: Medications Acetaminophen (Acetaminophen 325 Mg Tablet) 650 mg PO Q6HP PRN; Protocol PRN Reason: Per Pain Protocol/Fever > 101 Acetaminophen/Codeine Phosphate (Acetaminophen W/Codeine #3 1 Tablet) 1 tab PO Q4HP PRN; Protocol PRN Reason: Per Pain Protocol Last Admin: 01/01/21 22:35 Dose: 1 tab Documented by: Amlodipine Besylate (Amlodipine 5 Mg Tablet) 5 mg PO DAILY [facility] Last Admin: 01/02/21 09:18 Dose: 5 mg Documented by: Calcium Carbonate/Glycine (Calcium Carbonate 500 Mg Tab.Chew) 1,000 mg CHEWED Q4HP PRN PRN Reason: Dyspepsia Ceftriaxone Sodium (Ceftriaxone 1 Gm Vial) 1 gm IV DAILY [facility] Last Admin: 01/02/21 09:20 Dose: 1 gm Documented by: Enoxaparin Sodium (Enoxaparin 40 Mg/0.4 Ml Syringe) 40 mg SQ DAILY [facility] Last Admin: 01/02/21 09:18 Dose: 40 mg Documented by: Hydralazine HCl (Hydralazine 20 Mg/Ml Vial) 10 mg IV Q4-6HP PRN PRN Reason: Hypertension Metronidazole (Flagyl) 500 mg in 100 mls @ 100 mls/hr IV Q8H [facility]; Protocol Last Infusion: 01/02/21 07:05 Dose: Infused Documented by: Ibuprofen (Ibuprofen 200 Mg Tablet) 400 mg PO QIDP PRN; Protocol PRN Reason: Per Pain Protocol/Fever > 101 Last Admin: 12/30/20 20:13 Dose: 400 mg Documented by: Magnesium Hydroxide (Magnesium Hydroxide 30 Ml Oral.Susp) 30 ml PO DAILYP PRN PRN Reason: Constipation Last Admin: 01/02/21 06:08 Dose: 30 ml Documented by: Ondansetron HCl (Ondansetron 4 Mg Odt Tablet) 4 mg SL Q6HP PRN PRN Reason: Nausea And Vomiting Ondansetron HCl (Ondansetron 4 Mg/2 Ml Vial) 4 mg IV Q6HP PRN PRN Reason: Nausea And Vomiting Polyethylene Glycol (Polyethylene Glycol 3350 17 Gm Packet) 17 gm PO DAILY [facility] Last Admin: 01/02/21 09:18 Dose: 17 gm Documented by: Senna (Sennosides 1 Tablet) 2 tab PO HS PRN PRN Reason: Constipation Sodium Chloride (0.9 % Sodium Chloride 10 Ml Syringe) 10 ml IV Q8 [facility] Last Admin: 01/02/21 06:00 Dose: 10 ml Documented by: A/P Narrative A/P Narrative: A: #Fall with acute L4 Fx, chronic T11-L1: - Pain control, PT/OT. LSO brace. # UTI (E.coli - pansensitive): #colitis with ?pSBO (symptomatology not consistent with): last BM on ?6th -rocephin/flagyl -full liquid and tolerating, no abd pain/bloating/distention/nausea #Dehydration: improved # Probable mucous plugging descending bronchus to the left lower lobe by CT scan -IS/Acapella #Profound hypokalemia serum potassium 2.8: Likely due to poor p.o. intake -improved #Frequent falls/generalized weakness/failure to thrive: -Supportive care, PT/OT. [facility] DVT PPX: Lovenox 40mg daily Code Status : Full code Time Spent With Patient Time: Total time spent is greater than 50% in coordination of care (as docume nted) at patient's floor/unit and/or counseling patient:
[2021-01-02] MEDS: ACETAMINOPHEN W/CODEINE #3 1 TABLET PO PRN (11:18)
== END 2021-01-02 13:25 | DRG 552 ==
LOC: MEDSUR → OBSVTOIN 15:00
PROVIDERS: ADMIT Internal Medicine; ATTEND Internal Medicine